=== PATIENT | male | born 1965 | race Two or more races ===

== ENCOUNTER 2016-09-07 20:37 | Emergency (ER) | payer OTHER ==
[2016-09-07 20:44] VITALS: BP 135/81
--- NOTE | 2016-09-07 21:07 | PHYS DOC ---
Past Medical History Past Medical History: GERD Past Surgical History: Other Additional Past Surgical Histo: hernia, ABD SURGERY Alcohol Use: None Drug Use: None Adult General Chief Complaint Chief Complaint: LOWER BACK PAIN OR INJURY [facility] HPI Patient is a 51 year old male who presents with low back pain for two days that radiates down left leg. Denies injury, incontinence. Reports he took Mobic at home without relief. States similar episode 3-4 years ago. Review of Systems Review of Systems Constitutional: Denies fever or chills Eyes: Denies change in visual acuity, redness, or eye pain HENT: Denies nasal congestion or sore throat Respiratory: Denies cough or shortness of breath Cardiovascular: No additional information not addressed in HPI GI: Denies abdominal pain, nausea, vomiting, bloody stools or diarrhea : Denies dysuria or hematuria Musculoskeletal: back pain 2 days Integument: Denies rash or skin lesions Neurologic: Denies headache, focal weakness or sensory changes Endocrine: Denies polyuria or polydipsia Current Medications Current Medications Current Medications Medications (Trade) Dose Ordered Sig/Indy Start Time Stop Time Status Last Admin Dose Admin Acetaminophen/ Hydrocodone Bitart (Lortab 5/325) 1 tab 1X ONCE 09/07/16 21:15 09/07/16 21:16 DC 09/07/16 21:03 1 TAB Allergies Allergies Allergies Coded Allergies Type Severity Reaction Last Updated Verified No Known Drug Allergies 03/12/14 No Physical Exam Physical Exam Constitutional: Well developed, well nourished, no acute distress, non-toxic appearance. HENT: Normocephalic, atraumatic, bilateral external ears normal, oropharynx moist, no oral exudates, nose normal. Eyes: PERRLA, EOMI, conjunctiva normal, no discharge. Neck: Normal range of motion, no tenderness, supple, no stridor. Cardiovascular:Heart rate regular rhythm, no murmur Lungs & Thorax: Bilateral breath sounds clear to auscultation Abdomen: Bowel sounds normal, soft, no tenderness, no masses, no pulsatile masses. Skin: Warm, dry, no erythema, no rash. Back: No CVA tenderness. Midline tenderness lumbar Extremities: No tenderness, no cyanosis, no clubbing, ROM intact, no edema. Neurologic: Alert and oriented X 3, normal motor function, normal sensory function, no focal deficits noted. Psychologic: Affect normal, judgement normal, mood normal. Current Patient Data Vital Signs Vital Signs Date Time Temp Pulse Resp B/P Pulse Ox O2 Delivery O2 Flow Rate FiO2 09/07/16 20:44 98.7 78 18 98 Room Air 98.7 EKG EKG [] Radiology/Procedures Radiology/Procedures [] Impressions: 1. sciatica Course & Med Decision Making Course & Med Decision Making Pertinent Labs and Imaging studies reviewed. (See chart for details) [] Dragon Disclaimer Dragon Disclaimer This electronic medical record was generated, in whole or in part, using a voice recognition dictation system. Departure Departure Impression: Primary Impression: Sciatica of left side Disposition: HOME, SELF-CARE Condition: STABLE Referrals: NON,STAFF (PCP) Patient Instructions: Sciatica, [id number] Additional Instructions: Take medication as prescribed. Follow up with primary doctor in 1-2 days. Return if any problems or concerns. Scripts Cyclobenzaprine Hcl 10 Mg Tablet1 Tab PO QHS #10 TAB Prov:CLARISSE DUENAS APRN 09/07/16 Tramadol Hcl 50 Mg [id number] Mg PO Q6H PRN PAIN #20 TAB Prov:CLARISSE DUENAS APRN 09/07/16 CLARISSE DUENAS APRN Sep 07, 2016 21:07
[2016-09-07] MEDS ORDERED: HYDROCODONE/APAP 5/325MG TABLET. PO ONE (21:15)
[2016-09-07] MEDS ORDERED: CYCL10TA2 PO (21:48)
[2016-09-07] MEDS ORDERED: TRAM50TA PO (21:48)
--- NOTE | 2016-09-09 15:33 | RAD ---
Indication: Low back pain for one day. No known injury. Technique: 3 views of the lumbosacral spine are submitted for review. No comparison is available. Findings: There are 5 lumbar type vertebral bodies. There is no fracture or dislocation. Vertebral body height is maintained. There is minimal endplate spurring at L4-L5. There is mild facet hypertrophy at the lumbosacral junction. Impression: Negative for fracture or dislocation. Mild degenerative changes at L4-L5 and L5-S1.
== END 2016-09-07 22:00 | disposition home or self-care (01) ==
LOC: ER 20:37
DX: M54.42 Lumbago with sciatica, left side (principal)
CPT/HCPCS: 72100; 99284

== ENCOUNTER 2017-06-13 21:12 | Emergency (ER) | payer OTHER ==
[~2017-06-13] VITALS: Ht 175.3 cm; Wt 90.7 kg
[~2017-06-13 21:12] MED LIST: CYCL10TA2 PO; TRAM50TA PO
[2017-06-13 21:30] VITALS: BP 153/89
--- NOTE | 2017-06-13 21:34 | PHYS DOC ---
Past Medical History Past Medical History: GERD Past Surgical History: Other Additional Past Surgical Histo: hernia, ABD SURGERY Alcohol Use: None Drug Use: None Adult General Chief Complaint Chief Complaint: ITCHING HPI HPI Patient is a 51 year old male presents the ED complaining of itching times 2 weeks. States he had similar problems before when the seasons change. Used an oil from his home country but doesnt have it here. Itching all over. No new soaps, lotions or detergents. Denies fever, flu like symptoms, eye changes, chest pain, shortness of breath or weakness. Review of Systems Review of Systems Constitutional: Denies fever or chills [] Eyes: Denies change in visual acuity, redness, or eye pain [] HENT: Denies nasal congestion or sore throat [] Respiratory: Denies cough or shortness of breath [] Cardiovascular: No additional information not addressed in HPI [] GI: Denies abdominal pain, nausea, vomiting, bloody stools or diarrhea [] : Denies dysuria or hematuria [] Musculoskeletal: Denies back pain or joint pain [] Integument: Denies rash or skin lesions [] Neurologic: Denies headache, focal weakness or sensory changes [] Endocrine: Denies polyuria or polydipsia [] Allergies Allergies Allergies Coded Allergies Type Severity Reaction Last Updated Verified No Known Drug Allergies 03/12/14 No Physical Exam Physical Exam Constitutional: Well developed, well nourished, no acute distress, non-toxic appearance. [] HENT: Normocephalic, atraumatic, bilateral external ears normal, oropharynx moist, no oral exudates, nose normal. [] Eyes: PERRLA, EOMI, conjunctiva normal, no discharge. [] Neck: Normal range of motion, no tenderness, supple, no stridor. [] Cardiovascular:Heart rate regular rhythm, no murmur [] Lungs & Thorax: Bilateral breath sounds clear to auscultation [] Abdomen: Bowel sounds normal, soft, no tenderness, no masses, no pulsatile masses. [] Skin: Warm, dry, no erythema, no rash. [] Back: No tenderness, no CVA tenderness. [] Extremities: No tenderness, no cyanosis, no clubbing, ROM intact, no edema. [] Neurologic: Alert and oriented X 3, normal motor function, normal sensory function, no focal deficits noted. [] Psychologic: Affect normal, judgement normal, mood normal. [] Current Patient Data Vital Signs Vital Signs Date Time Temp Pulse Resp B/P (MAP) Pulse Ox O2 Delivery O2 Flow Rate FiO2 06/13/17 21:30 98.8 89 20 96 Room Air 98.8 EKG EKG [] Radiology/Procedures Radiology/Procedures [] Course & Med Decision Making Course & Med Decision Making Pertinent Labs and Imaging studies reviewed. (See chart for details) []Normal physical exam. No rash or skin changes. No systemic symptoms. Discussed using lotion daily after showers and aquafor. Discussed follow-up and reasons to return to the ED. Patient understands and agrees with plan. Dragon Disclaimer Dragon Disclaimer This electronic medical record was generated, in whole or in part, using a voice recognition dictation system. Departure Departure Impression: Primary Impression: Pruritus Disposition: 01 HOME, SELF-CARE Condition: STABLE Referrals: NO PCP (PCP) JUMA GALINDO MD Patient Instructions: Pruritus RHEA HOROWITZ Jun 13, 2017 21:34
== END 2017-06-13 21:43 | disposition home or self-care (01) ==
LOC: ER 21:12
DX: L29.9 Pruritus, unspecified (principal); K21.9 Gastro-esophageal reflux disease without esophagitis
CPT/HCPCS: 99281

== ENCOUNTER 2017-08-20 01:16 | Emergency (ER) | payer OTHER ==
[2017-08-20] MEDS: oxyCODONE/APAP 5/325 1 TAB TABLET PO (02:30)
[2017-08-20] MEDS: IBUPROFEN 800 MG TABLET. PO (02:30)
== END 2017-08-20 02:46 | disposition home or self-care (01) ==
LOC: ER 01:16
DX: K08.89 Other specified disorders of teeth and supporting structures (principal); E78.00 Pure hypercholesterolemia, unspecified
CPT/HCPCS: 99283

== ENCOUNTER 2018-02-22 21:11 | Emergency (ER) | payer OTHER | END 2018-02-22 22:18 | disposition home or self-care (01) | LOC: ER 21:11 | DX: S46.911A Strain of unspecified muscle, fascia and tendon at shoulder and upper arm level, right arm, initial encounter (principal); E78.00 Pure hypercholesterolemia, unspecified; X50.0XXA Overexertion from strenuous movement or load, initial encounter; Y93.89 Activity, other specified; Y99.8 Other external cause status; Y92.89 Other specified places as the place of occurrence of the external cause | CPT/HCPCS: 73030; 99284 ==

== ENCOUNTER → 2018-05-17 | Outpatient (CLI) | payer OTHER ==
[2018-02-22 21:25] VITALS: BP 138/74
[~2018-05-17] MED LIST changes: +AMOX875T PO; +DICL100G18 TP; +DICL50TA4 PO; +HYDR-971 PO
--- NOTE | 2018-05-17 16:28 | KCIC ---
MR of the right shoulder Indication: Acute pain, popping, symptoms for the last 3 months when lifting. Technique: Standard multiplanar sequences are obtained. Findings: Artifact: Moderate to severe motion degradation despite repeated scanning. Acromioclavicular joint: Mildly degenerative with mild undersurface osteophytes. Rotator cuff: * Supraspinatus-infraspinatus tendon: Complete full-thickness rupture of the supraspinatus tendon, with retraction to about the superior labrum measuring 4 cm. Infraspinatus tendinosis with partial undersurface tearing. * Subscapularis tendon: Tendinosis, no high-grade tear. Probable mild partial tearing. * Muscle bulk: Moderate volume loss and mild fatty infiltration, greatest at the supraspinatus. * Subacromial subdeltoid bursa: Small effusion. Fluid: Small glenohumeral effusion. Glenohumeral cartilage: Mild primary osteoarthritis Labrum: Limited evaluation due to the motion. Inferior labrum is heterogeneous, likely indicative of a tear. Posterosuperior labrum is also irregular. Biceps tendon: Tendinosis Bones: No lesion or acute fracture. Soft tissue: No acute findings. Impression: 1. Complete full-thickness rupture of supraspinatus tendon with severe retraction. Partial infraspinatus tendon tearing, probable mild partial subscapularis tendon tear. 2. Probable inferior labral tear, possible posterosuperior labral tear. Evaluation limited due to motion degradation. 3. Biceps tendinosis. Electronically signed by: Lane Garcia MD (05/17/2018 4:25 PM) [facility]
== END | disposition home or self-care (01) ==
LOC: KCIC MRI 14:32
PROVIDERS: ATTEND Orthopaedic Surgery
DX: S46.911A Strain of unspecified muscle, fascia and tendon at shoulder and upper arm level, right arm, initial encounter (principal); F17.200 Nicotine dependence, unspecified, uncomplicated; Z79.899 Other long term (current) drug therapy; X50.9XXA Other and unspecified overexertion or strenuous movements or postures, initial encounter; Y93.89 Activity, other specified; Y92.89 Other specified places as the place of occurrence of the external cause; Y99.8 Other external cause status
CPT/HCPCS: 73221

== ENCOUNTER 2018-07-27 06:53 | Day surgery (SDC) | payer OTHER ==
[~2018-07-27] VITALS: Ht 177.8 cm; Wt 84.4 kg
[~2018-07-27 06:53] MED LIST changes: +HYDR-3164 PO; -HYDR-971 PO
[2018-07-27] MEDS ORDERED: LIDOCAINE 1% PF 2 ML VIAL. ID PRN (07:00)
[2018-07-27] MEDS ORDERED: MORPHINE SULFATE 2 MG/ML VIAL. IV PRN (07:00)
[2018-07-27] MEDS ORDERED: fentaNYL PF VIAL 100 MCG/2 ML VIAL IV PRN (07:00)
[2018-07-27] MEDS ORDERED: ONDANSETRON PF 4 MG/2 ML VIAL. IV PRN (07:00)
[2018-07-27] MEDS ORDERED: ROCURONIUM 50 MG/5 ML VIAL. ONE (07:06)
[2018-07-27] MEDS ORDERED: fentaNYL PF VIAL 100 MCG/2 ML VIAL ONE (07:06)
[2018-07-27] MEDS ORDERED: LIDOCAINE 2% PF Vial for OR 5 ML VIAL. ONE (07:06)
[2018-07-27] MEDS ORDERED: PROPOFOL 20 ML IV ONE (07:06)
[2018-07-27] MEDS ORDERED: SUCCINYLCHOLINE 200 MG/10 ML VIAL. ONE (07:06)
[2018-07-27] MEDS ORDERED: OMEP20CA9 PO (07:24)
[2018-07-27] MEDS ORDERED: METF500T16 PO (07:24)
[2018-07-27] MEDS ORDERED: EPINEPHrine VIAL 30 MG/30 ML VIAL ONE (07:25)
[2018-07-27] MEDS ORDERED: ATOR20TA58 PO (07:25)
[2018-07-27] MEDS: IV RINGERS,LACTATED 1000ML 1,000 ML IV SCH ×2 (07:34→10:09)
[2018-07-27 07:37] LABS: BASO # 0.1 x10^3/uL (0.0-0.2); BASO % 1 % (0-3); EOS # 0.1 x10^3/uL (0.0-0.7); EOS % 1 % (0-3); HEMATOCRIT 39.5 % (39.0-53.0); HEMOGLOBIN 14.1 g/dL (13.0-17.5); LYMPH # 4.1 x10^3/uL (1.0-4.8); LYMPH % 46 % (24-48); MEAN CORPUSCULAR HEMOGLOBIN 32 pg (25-35); MEAN CORPUSCULAR HGB CONC 36 g/dL (31-37); MEAN CORPUSCULAR VOLUME 89 fL (79-100); MONO # 0.6 x10^3/uL (0.0-1.1); MONO % 7 % (0-9); NEUT # 4.1 x10^3uL (1.8-7.7); NEUT % 46 % (31-73); PLATELET COUNT 184 x10^3/uL (140-400); RED BLOOD COUNT 4.47 x10^6/uL (4.30-5.70); RED CELL DISTRIBUTION WIDTH 13.6 % (11.5-14.5); WHITE BLOOD COUNT 8.9 x10^3/uL (4.0-11.0)
[2018-07-27 07:48] LABS: CALCIUM 9.1 mg/dL (8.5-10.1); CREATININE 0.8 mg/dL (0.7-1.3); GFR 100.7; POTASSIUM 3.8 mmol/L (3.5-5.1)
--- NOTE | 2018-07-27 07:51 | DISCH ---
DISCHARGE INSTRUCTIONS Condition on Discharge Condition on Discharge: Stable Activity After Discharge Activity Instructions for Disc: Other, see below (fine motor use of right hand with arm at side only, no lifting pushing pulling or lifting arm away from body) Diet after Discharge Diet after Discharge: Diabetic No Calorie Level Wound Incision Care Wound/Incision Care: Change dressing (dressing after 2 days may then shower no soaking until sutures removed) Community/Resources/Services Services at Discharge: PT EVALUATE & TREAT (passive range of motion left shoulder only expected for 1 month) Contacting the after DC Call your doctor for: Concerns you may have Follow-Up Follow up with: Regina 10 days YOLA KHOURY MD Jul 27, 2018 07:51
[2018-07-27] MEDS ORDERED: OXYC1TAB19 PO (07:52)
[2018-07-27] MEDS ORDERED: MORPHINE SULFATE 10 MG/ML VIAL. ONE (07:58)
[2018-07-27] MEDS ORDERED: DESFLURANE 61 TO 120 MINUTES IH ONE (08:00)
[2018-07-27] MEDS ORDERED: DEXAMETHASONE SOD PHOS 20 MG/5 ML VIAL. ONE (08:00)
[2018-07-27] MEDS ORDERED: BUPIVAC MPF-EPI 0.5%-1:200000 30 ML VIAL. ONE (08:16)
[2018-07-27] MEDS ORDERED: GLYCOPYRROLATE 1 MG/5 ML VIAL. ONE (08:22)
[2018-07-27] MEDS ORDERED: NEOSTIGMINE METHYLSULFATE 5 MG/5 ML SYRINGE. ONE (08:22)
[2018-07-27] MEDS ORDERED: ONDANSETRON PF 4 MG/2 ML VIAL. ONE (08:22)
[2018-07-27] MEDS: PROCHLORPERAZINE 10 MG/2 ML VIAL. IV PRN ×2 (10:08→10:22)
[2018-07-27] MEDS: fentaNYL PF VIAL 100 MCG/2 ML VIAL IV PRN ×2 (10:09→10:24)
[2018-07-27] MEDS: HYDROmorphone 2 MG/ML VIAL IV PRN ×3 (10:23→11:16)
[2018-07-27] MEDS ORDERED: oxyCODONE/APAP 7.5/325 1 TAB TABLET PO ONE (11:00)
[2018-07-27] MEDS ORDERED: ceFAZolin 2GM PREMIX 2 GM/50 ML BAG IV ONE (12:00)
[2018-07-27 12:15] VITALS: BP 171/84
--- NOTE | 2018-07-27 19:30 | PDOC4 ---
Operative Note Operative Note Date of surgery: 07/27/2018 Preoperative diagnosis: Full-thickness rotator cuff tear right shoulder and suspected long head biceps compromise Postoperative diagnosis: Same Operative procedure: Right shoulder arthroscopy rotator cuff repair and biceps tenodesis Surgeon: Regina Anesthesia: Gen. Estimated blood loss: 15 mL Complications: None Operative indications: Patient is a 52-year-old male with right shoulder pain unimproved status post an injury with weakness and ongoing pain with use and sleeping. Please see my clinic note for additional details. I gone over with him risks benefits postoperative course of operative treatment including rationale for reattachment of the rotator cuff assessment of and treatment of any other pathologies as appropriate the long recovery process associated possibility of nonhealing infection nerve or blood vessel damage medical or other anesthetic complications among others. All his questions were answered with the use of the healthcare interpreter in clinic and any ongoing questions were minimal but addressed preoperatively as well he wishes to proceed with surgical evaluation and treatment. Operative text: Patient was identified procedure verified patient placed in the supine position on the operative table. After adequate amounts of general anesthesia were administered he was placed decubitus right side up using the beanbag for support and all bony prominences were well-padded. The right shoulder was prepped and draped in standard sterile fashion and after timeout was performed patient procedure identified and verified he was placed in 15 pounds of traction noted to have previously full range of motion with no instability a standard posterior portal was established an anterior portal established using spinal needle localization and the shoulder joint was systematically examined. He was noted to have a very large full-thickness retracted tear of the supraspinatus and infraspinatus in an L-shaped fashion. He also had severe biceps fraying involving probably 35-40% of the biceps tendon substance and some grade 2-3 chondromalacia over the humeral head primarily less so than over the articular surface of the glenohumeral joint. Subacromial space was entered and bursectomy was performed he did not have significant impingement from an anterior acromial spur the bursa was cleared to allow adequate visualization and with a lateral portal established arthroscopic bur was used to debride the rotator cuff footprint back to bleeding bony tissue without decortication traction sutures were placed with a self retrieving device and the L-shaped rotator cuff tear was brought over to a more reduced fashion. Biceps tendon was then detached and tagged and Shaan D [place] in the bicipital groove under good tension. A total of 2 absorbable anchors were placed with 2 strands of tape suture 4.5 Biomet. These were placed in a mattress fashion and tied down with sliding locking knots to re-create the rotator cuff footprint. [id number] repair with Max braid suture and lateral row repair completed with [facility] lateral row anchors which provided excellent fixation and a footprint repair. The repair was examined in all degrees of internal/external rotation. Portals were closed with buried Vicryl suture subcuticular Monocryl Steri-Strips and Mastisol sterile dressings were applied patient was placed in an immobilizer returned to recovery room in stable condition having tolerated the procedure well YOLA KHOURY MD Jul 27, 2018 19:30
== END 2018-07-27 12:27 | disposition home or self-care (01) ==
LOC: SURG 06:53
PROVIDERS: ATTEND Orthopaedic Surgery
DX: S46.011A Strain of muscle(s) and tendon(s) of the rotator cuff of right shoulder, initial encounter (principal); S46.211A Strain of muscle, fascia and tendon of other parts of biceps, right arm, initial encounter; M94.211 Chondromalacia, right shoulder; K21.9 Gastro-esophageal reflux disease without esophagitis; E11.9 Type 2 diabetes mellitus without complications; E78.00 Pure hypercholesterolemia, unspecified; Z98.890 Other specified postprocedural states; Z79.84 Long term (current) use of oral hypoglycemic drugs; Z79.899 Other long term (current) drug therapy; X58.XXXA Exposure to other specified factors, initial encounter; Y93.89 Activity, other specified; Y92.89 Other specified places as the place of occurrence of the external cause; Y99.8 Other external cause status
CPT/HCPCS: 29827; 29828; 36415; 80048; 82962; 85025; A7015; C1713; J0171; J0330; J0690; J0780; J1100; J1170; J2001; J2270; J2405; J2704; J2710; J3010; J3490; J7120

== ENCOUNTER 2020-04-02 19:10 | Emergency (ER) | payer MEDICAID, OTHER ==
[~2020-04-02] VITALS: Ht 177.8 cm; Wt 71.8 kg
[~2020-04-02 19:10] MED LIST changes: +ATOR20TA58 PO; -DICL100G18 TP; +DICL100G54 TP; +METF500T16 PO; +OMEP20CA16 PO; +OXYC1TAB19 PO
[2020-04-02 19:31] VITALS: BP 137/77
[2020-04-02] MEDS ORDERED: PRED50TA PO (20:03)
--- NOTE | 2020-04-02 20:05 | PHYS DOC ---
Past Medical History Past Medical History: Diabetes-Type II, GERD (RESHMA FREEMAN APRN) Past Surgical History: Other Additional Past Surgical Histo: ABD SURGERY (RESHMA FREEMAN APRN) Smoking Status: Former Smoker Alcohol Use: None Drug Use: None (RESHMA FREEMAN APRN) General Adult EDM: Chief Complaint: SORE THROAT HPI: HPI: Patient is a 54 year old male who presents to the ED today complaining of a sore throat since this morning. Patient denies any fever, cough, congestion. Denies any concerns for COVID19. (RESHMA FREEMAN APRN) Review of Systems: Review of Systems: Constitutional: Denies fever or chills. [] Eyes: Denies change in visual acuity. [] HENT: Reports sore throat. Denies nasal congestion Respiratory: denies cough or shortness of breath. [] Cardiovascular: Denies chest pain or edema. [] GI: Denies abdominal pain, nausea, vomiting, bloody stools or diarrhea. [] : Denies dysuria. [] Musculoskeletal: Denies back pain or joint pain. [] Integument: Denies rash. [] Neurologic: Denies headache, focal weakness or sensory changes. [] Psychiatric: Denies depression or anxiety. [] (RESHMA FREEMAN APRN) Heart Score: Risk Factors: Risk Factors: DM, Current or recent (<one month) smoker, HTN, HLP, family history of CAD, obesity. Risk Scores: Score 0 - 3: 2.5% MACE over next 6 weeks - Discharge Home Score 4 - 6: 20.3% MACE over next 6 weeks - Admit for Clinical Observation Score 7 - 10: 72.7% MACE over next 6 weeks - Early Invasive Strategies (RESHMA FREEMAN APRN) Allergies: Allergies: Allergies Coded Allergies Type Severity Reaction Last Updated Verified No Known Drug Allergies 07/27/18 No (RESHMA FREEMAN APRN) Physical Exam: PE: Constitutional: Well developed, well nourished, no acute distress, non-toxic appearance. [] HENT: Normocephalic, atraumatic, bilateral external ears normal, oropharynx moist, no oral exudates, nose normal. [] Eyes: PERRLA, EOMI, conjunctiva normal, no discharge. [] Neck: Normal range of motion, no tenderness, supple, no stridor. [] Cardiovascular:Heart rate regular rhythm, no murmur [] Lungs & Thorax: Bilateral breath sounds clear to auscultation [] Abdomen: Bowel sounds normal, soft, no tenderness, no masses, no pulsatile masses. [] Skin: Warm, dry, no erythema, no rash. [] Back: No tenderness, no CVA tenderness. [] Extremities: No tenderness, no cyanosis, no clubbing, ROM intact, no edema. [] Neurologic: Alert and oriented X 3, normal motor function, normal sensory function, no focal deficits noted. [] Psychologic: Affect normal, judgement normal, mood normal. [] (RESHMA FREEMAN APRN) Current Patient Data: Vital Signs: Vital Signs Date Time Temp Pulse Resp B/P (MAP) Pulse Ox O2 Delivery O2 Flow Rate FiO2 04/02/20 19:31 98.4 70 17 137/77 (97) 97 Room Air 98.4 (RESHMA FREEMAN APRN) EKG: EKG: [] (RESHMA FREEMAN APRN) Radiology/Procedures: Radiology/Procedures: [] (RESHMA FREEMAN APRN) Course & Med Decision Making: Course & Med Decision Making Pertinent Labs and Imaging studies reviewed. (See chart for details) This is a 54-year-old male patient presenting to the ED today with complaints of sore throat since this morning. Negative rapid strep. Patient denies concerns for COVID19. Airways open. Was discharged on lidocaine viscous and prednisone. Salt water gargles recommended. Tylenol or Motrin for pain or fever. Follow-up with primary care doctor or ENT in 1 week if symptoms persist. (RESHMA FREEMAN APRN) Course & Med Decision Making I have reviewed the PA/BOX TOE STITCHER's note and Plan of Care. I was available for consultation as needed during the patient's visit in the emergency department. I agree with the clinical impression, plans and disposition. (REJI EDWARDS MD) Dorian Disclaimer: Dorian Disclaimer: This electronic medical record was generated, in whole or in part, using a voice recognition dictation system. (RESHMA FREEMAN APRN) Departure Departure Impression: Primary Impression: Acute pharyngitis Qualified Codes: J02.9 - Acute pharyngitis, unspecified Disposition: HOME, SELF-CARE Condition: STABLE Referrals: NO PCP (PCP) CHACHA SILVA MD Follow-up in 2 weeks if pain persist Patient Instructions: Viral Pharyngitis Additional Instructions: You were evaluated in the emergency room for sore throat, your rapid strep test is negative. Use the prescribed medications as ordered. Follow-up with your own doctor or the provided ENT specialist in 1 to 2 weeks if symptoms persist. Consider using salt water gargles. Scripts Prednisone (PREDNISONE) 50 Mg Tablet 1 TAB PO DAILY, #5 TAB Prov: RESHMA FREEMAN APRN 04/02/20 Justicifation of Admission Dx: Justifications for Admission: Justification of Admission Dx: N/A (RESHMA FREEMAN APRN) RESHMA FREEMAN APRN Apr 02, 2020 20:05 REJI EDWARDS MD Apr 02, 2020 21:55
== END 2020-04-02 20:14 | disposition home or self-care (01) ==
LOC: ER 19:10
DX: J02.9 Acute pharyngitis, unspecified (principal); E11.9 Type 2 diabetes mellitus without complications; K21.9 Gastro-esophageal reflux disease without esophagitis; Z98.890 Other specified postprocedural states; Z87.891 Personal history of nicotine dependence
CPT/HCPCS: 87070; 87880; 99283

== ENCOUNTER 2021-08-26 12:35 | Emergency (ER) | payer MEDICAID ==
[~2021-08-26] VITALS: Ht 177.8 cm; Wt 89.0 kg
[~2021-08-26 12:35] MED LIST changes: +CYCL10TA19 PO; -CYCL10TA2 PO; +PRED50TA PO
[2021-08-26] MEDS ORDERED: IBUPROFEN 200 MG TABLET. PO ONE (13:15)
--- NOTE | 2021-08-26 13:52 | RAD ---
AP and Lateral Views of the Chest 08/26/2021 1:19 PM Indication: Reason: cough Comparison: None Findings: There is no focal consolidation or infiltrate identified. The cardiomediastinal silhouette is within normal limits. There is no evidence of pneumothorax or pleural effusion. No acute osseous a bnormalities are identified. Impression: No evidence of acute cardiopulmonary process. Electronically signed by: Dayo Townsend MD (08/26/2021 1:49 PM) [id number]
[2021-08-26 14:12] LABS: INFLUENZA A PATIENT NEGATIVE (NEGATIVE); INFLUENZA B PATIENT NEGATIVE (NEGATIVE)
--- NOTE | 2021-08-26 14:14 | PHYS DOC ---
Past Medical History Past Medical History: Diabetes-Type II, GERD Past Surgical History: No Surgical History Additional Past Surgical Histo: ABD SURGERY Smoking Status: Former Smoker Alcohol Use: None Drug Use: None General Adult EDM: Chief Complaint: FLU SYMPTOM HPI: HPI: Patient is a 56 year old male who presents with body aches, fever, cough, nausea x4 days. Temperature on arrival was 101. Patient denies taking anything for fever prior to arrival. Patient's has also been sick for the last 4 days with same symptoms. Denies shortness of breath or chest pain. Patient has been fully vaccinated for COVID. Patient has a history of history of hypertension, hyperlipidemia. Review of Systems: Review of Systems: ROS At least 10 ROS systems have been reviewed and are negative except as documented in the HPI. General: Negative except as outlined in HPI above. Skin: Negative except as outlined in HPI above. HEENT: Negative except as outlined in HPI above. Neck: Negative except as outlined in HPI above. Respiratory: Negative except as outlined in HPI above.. Cardiovascular: Negative except as outlined in HPI above. Abdomen: Negative except as outlined in HPI above. : Negative except as outlined in HPI above. Back/MSK: Negative except as outlined in HPI above. Neuro: Negative except as outlined in HPI above. Psych: Negative except as outlined in HPI above. Heart Score: C/O Chest Pain: No Risk Factors: Risk Factors: DM, Current or recent (<one month) smoker, HTN, HLP, family history of CAD, obesity. Risk Scores: Score 0 - 3: 2.5% MACE over next 6 weeks - Discharge Home Score 4 - 6: 20.3% MACE over next 6 weeks - Admit for Clinical Observation Score 7 - 10: 72.7% MACE over next 6 weeks - Early Invasive Strategies Current Medications: Current Medications Medications (Trade) Dose Ordered Sig/Indy Start Time Stop Time Status Last Admin Dose Admin Ibuprofen (Motrin) 600 mg 1X ONCE 08/26/21 13:15 08/26/21 13:16 DC 08/26/21 13:15 600 MG Allergies: Allergies: Allergies Coded Allergies Type Severity Reaction Last Updated Verified No Known Drug Allergies 08/26/21 No Physical Exam: PE: Constitutional: Well developed, well nourished, no acute distress, non-toxic appearance. [] HENT: Normocephalic, atraumatic, bilateral external ears normal, oropharynx moist, no oral exudates, nose normal. [] Eyes: PERRLA, EOMI, conjunctiva normal, no discharge. [] Neck: Normal range of motion, no tenderness, supple, no stridor. [] Cardiovascular:Heart rate regular rhythm, no murmur [] Lungs & Thorax: Bilateral breath sounds clear to auscultation [] Abdomen: Bowel sounds normal, soft, no tenderness, no masses, no pulsatile masses. [] Skin: Warm, dry, no erythema, no rash. [] Back: No tenderness, no CVA tenderness. [] Extremities: No tenderness, no cyanosis, no clubbing, ROM intact, no edema. [] Neurologic: Alert and oriented X 3, normal motor function, normal sensory function, no focal deficits noted. [] Psychologic: Affect normal, judgement normal, mood normal. [] Current Patient Data: Vital Signs: Vital Signs Date Time Temp Pulse Resp B/P (MAP) Pulse Ox O2 Delivery O2 Flow Rate FiO2 08/26/21 12:50 101.0 97 17 137/90 (106) 100 Room Air 101.0 EKG: EKG: [] Radiology/Procedures: Radiology/Procedures: []AP and Lateral Views of the Chest 08/26/2021 1:19 PM Indication: Reason: cough Comparison: None Findings: There is no focal consolidation or infiltrate identified. The cardiomediastinal silhouette is within normal limits. There is no evidence of pneumothorax or pleural effusion. No acute osseous abnormalities are identified. Impression: No evidence of acute cardiopulmonary process. Electronically signed by: Dayo Townsend MD (08/26/2021 1:49 PM) [id number] Course & Med Decision Making: Course & Med Decision Making Pertinent Labs and Imaging studies reviewed. (See chart for details) [] 56-year-old male presents with cough, body aches, fever. Work-up in ER consisted of chest x-ray. Patient's temperature treated with ibuprofen. Patient tested for influenza along with COVID. Chest x-ray is unremarkable. Patient's COVID test is positive. Discussed all results with patient. Advised patient he would need to quarantine at home. Discussed CDC recommendations for length of time. Patient should take ibuprofen and Tylenol at home for fever and body aches. Drink plenty of fluids to help avoid dehydration. Discussed return precautions in length with patient. Patient verbalizes understanding of discharge instructions. Dragon Disclaimer: Dragon Disclaimer: This electronic medical record was generated, in whole or in part, using a voice recognition dictation system. Departure Departure Impression: Primary Impression: COVID Additional Impression: Fever Qualified Codes: R50.9 - Fever, unspecified Disposition: HOME / SELF CARE / HOMELESS Condition: STABLE Referrals: NO PCP (PCP) Patient Instructions: Fever, Adult, [id number] Additional Instructions: You were seen in the emergency room for cough, fever, body aches. Your COVID test was positive. Your influenza test was negative. Make sure that you are quarantining at home. You can take ibuprofen and Tylenol for fever and body aches. Make sure you are drinking plenty of fluids to help avoid dehydration. Please follow-up with your PCP in the next 1 to 2 days. Return to the emergency room if you have an increase in shortness of breath, chest pain, uncontrollable vomiting. EMERGENCY DEPARTMENT GENERAL DISCHARGE INSTRUCTIONS Thank you for coming to [facility] Emergency Department (ED) today and trusting us with you care. We trust that you had a positive experience in our Emergency Department. If you wish to speak to the department management, you may call the Director at [phone]. YOUR FOLLOW UP INSTRUCTIONS ARE FOLLOWS: 1. Do you have a private Doctor? If you do not have a private doctor, please ask for a resource list of physicians or clinics that may be able to assist you with follow up care. 2. The Emergency Physicain has interpreted your x-rays. The X-Ray specialist will also review them. If there is a change in the findings, you will be notified in 48 hours when at all possible. 3. A lab test or culture has been done, your results will be reviewed and you will be notified if you need a change in treatment. ADDITIONAL INSTRUCTIONS AND INFORMATION: 1. Your care today has been supervised by a physician who is specially trained in emergency care. Many problems require more than one evaluation for a complete diagnosis and treatment. We recommend that you schedule your follow up appointment as recommended to ensure complete treatment of you illness or injury. If you are unable to obtain follow up care and continue to have a problem, or if your condition worsens, we recommend that you return to the ED. 2. We are not able to safely determine your condition over the phone nor are we able to give sound medical advice over the phone. For these safety reasons, if you call for medical advice we will ask you to come to the ED for further evaluation. 3. If you have any questions regarding these discharge instructions please call the ED at [phone]. SAFETY INFORMATION: In the interest of safety, wellness, and injury prevention; we encourage you to wear your sealbelt, if you smoke; quite smoking, and we encourage family to use a protective helmet for bicycling and other sporting events that present an increased risk for head injury. IF YOUR SYMPTOMS WORSEN OR NEW SYMPTOMS DEVELOP, OR YOU HAVE CONCERNS ABOUT YOUR CONDITION; OR IF YOUR CONDITION WORSENS WHILE YOU ARE WAITING FOR YOUR FOLLOW UP APPOINTMENT; EITHER CONTACT YOUR PRIMARY CARE DOCTOR, THE PHYSICIAN WHOSE NAME AND NUMBER YOU WERE GIVEN, OR RETURN TO THE ED IMMEDIATELY. OREN GUNDERSON APRN Aug 26, 2021 14:14
[2021-08-26 15:02] VITALS: BP 133/85
== END 2021-08-26 15:03 | disposition home or self-care (01) ==
LOC: ER 12:35
DX: U07.1 COVID-19 (principal); R50.9 Fever, unspecified; E11.9 Type 2 diabetes mellitus without complications; K21.9 Gastro-esophageal reflux disease without esophagitis; Z87.891 Personal history of nicotine dependence
CPT/HCPCS: 71046; 87428; 99284